=== PATIENT | female | born 1975 | race Two or more races ===

== ENCOUNTER 2017-11-22 03:10 | Emergency (ER) | payer BC ==
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
[2017-11-22] MEDS ORDERED: AMOXICILLIN TR/POT CLAVULANATE 500-125 MG TAB PO ONE (04:45)
[2017-11-22] MEDS ORDERED: CYCLOBENZAPRINE HCL 10 MG TABLET PO ONE (04:45)
[2017-11-22 06:14] VITALS: BP 127/98
== END 2017-11-22 05:17 | disposition home or self-care (01) ==
LOC: ER 03:10
DX: S06.0X1A Concussion with loss of consciousness of 30 minutes or less, initial encounter (principal); S46.811A Strain of other muscles, fascia and tendons at shoulder and upper arm level, right arm, initial encounter; S41.151A Open bite of right upper arm, initial encounter; Y04.1XXA Assault by human bite, initial encounter; Z23 Encounter for immunization; Y04.8XXA Assault by other bodily force, initial encounter
CPT/HCPCS: 99284